=== PATIENT | female | born 1965 | race Caucasian/White ===

== ENCOUNTER 2024-12-08 14:54 | Emergency (ER) | payer OTHER, SELFPAY ==
--- NOTE | ~2024-12-08 | XR_ITS ---
EXAMINATION: XR chest 2V DATE: 12/08/2024 15:44 INDICATION: Productive cough TECHNIQUE: PA and lateral views of the chest were obtained. COMPARISON: Chest radiograph dated 11/25/10 FINDINGS: The lungs are hyperexpanded with flattening of the diaphragm and increased retrosternal clear space s uggestive but not diagnostic of COPD. No focal airspace opacities, pulmonary edema, pleural effusion or pneumothorax. The cardiomediastinal silhouette is normal. Moderate thoracic spondylosis with chron ic mild anterior wedging of a midthoracic vertebral body. IMPRESSION: 1. Hyperexpansion lungs suggestive but not diagnostic of COPD. No acute cardiopulmonary disease. Reviewed, dictated and finalized at location A. R DIAMETER GRINDER IMPRESSION: 1. Hyperexpansion lungs suggestive but not diagnostic of COPD. No acute cardiop ulmonary disease.
[2024-12-08 15:09] VITALS: BP 113/71; PULSE 97; RESP 16; TEMP 37.1; O2SAT 96
--- NOTE | 2024-12-08 15:18 | ED.NAVMDI ---
HPI - Nausea/Vomiting/Diarrhea General Chief complaint: Nausea/Vomiting/Diarrhea Stated complaint: cough,TREVIÑO,fever,diarrhea,bodyaches Time Seen by Provider: 12/08/24 15:20 Source: patient, RN notes reviewed and old records reviewed Mode of arrival: ambulatory Limitations: no limitations History of Present Illness HPI Narrative: Patient presents with complaints of flu-like symptoms that began 2 days ago. She has been taking [id number] medications for her symptoms with moderate relief. She does report cough and wheezing is the worst of her symptoms. She is not in any distress, including respiratory distress Related Data Home Medications ?Medication ?Instructions ?Recorded ?Confirmed ?Last Taken ?Type albuterol sulfate 90 mcg/actuation inhalation 12/08/24 Unknown History aerosol inhaler budesonide 160 mcg-glycopyr 9 inh inhalation 12/08/24 Unknown History mcg-formot 4.8 mcg/actuation HFA inhaler (Breztri Aerosphere) Allergies Allergy/AdvReac Type Severity Reaction Status Date / Time acetaminophen (From Vicodin) Allergy Intermediate RASH Verified 12/08/24 15:17 hydrocodone (From Vicodin) Allergy Intermediate RASH Verified 12/08/24 15:17 Review of Systems Review of Systems: All systems reviewed & are unremarkable except as noted in HPI and below Constitutional: Constitutional: Reports no additional constitutional complaints, Reports body ache(s), Reports daytime sleepiness, Reports fever(s), Reports headache(s) and Reports lethargy ENT: Reports system reviewed and no additional complaints, except as documented Cardiovascular: Cardiovascular: Reports no additional cardiovascular complaints Respiratory: Respiratory: Reports no additional respiratory complaints, Reports change in phlegm color, Reports chest congestion, Reports cough and Reports wheezing Gastrointestinal: Gastrointestinal: Reports no additional gastrointestinal complaints PMFSH Comments At the time of my signature, I reviewed and agree with the nursing past medical, surgical, social, and family history. There is no relevant family history pertinent to the patient complaint. Exam Const: General: cooperative, no acute distress, alert, awake and uncomfortable Orientation/consciousness: oriented to person, oriented to place and oriented to time HENMT: Head: normal to inspection Mouth: Yes moist mucous membranes Resp: Effort & Inspection: normal respiratory effort and able to speak in complete sentences Auscultation: clear to auscultation bilaterally, no crackles, no rales, no rhonchi, wheezes and diminished lung sounds bilateral in the lower lung bowser Cardio: Palpation: normal PMI Rate: regular rate Rhythm: regular rhythm Heart sounds: S1 normal heart sound present and S2 normal heart sound present Neuro: General: oriented to person, oriented to place and oriented to time Cranial nerves: Yes CN's II-XII intact bilaterally Psych: Appearance: grossly normal Thought process: Normal thought process present Insight: Good insight present (Psych) Judgement: Good judgement present (Psych) Course Course Level of Care: Express Care Visit Vital Signs Vital signs: Vital Signs Temperature 98.8 F 12/08/24 15:09 Pulse Rate 97 12/08/24 15:09 Respiratory Rate 16 12/08/24 15:09 Blood Pressure 113/71 12/08/24 15:09 Pulse Oximetry 96 12/08/24 15:09 Oxygen Delivery Room Air 12/08/24 15:09 Temperature 98.8 F 12/08/24 15:09 Pulse Rate 97 12/08/24 15:09 Respiratory Rate 16 12/08/24 15:09 Blood Pressure 113/71 12/08/24 15:09 Pulse Oximetry 96 12/08/24 15:09 Oxygen Delivery Room Air 12/08/24 15:09 Reviewed MDM - Nausea/Vomiting/Diarrhea MDM Narrative Medical decision making narrative: Reassuring chest x-ray. Physical exam significant for abnormal lung sounds. Given comorbid conditions and exam, will cover with azithromycin in addition to prednisone and albuterol. Discharge instructions reviewed with patient, as well as provided in writing per nursing staff. The instructions also include specific and strict return/GO TO THE ER as well as f/u information. All questions have been answered, and the patient deny any further questions with discharge and discharge plan. Some parts of this dictation were generated by voice recognition software and may contain typographical and/or grammatical inaccuracies. Differential Diagnosis Differential diagnosis: Likely other (COVID, influenza) Medical Records Attestation: I reviewed the patient's medical records. Lab Data Attestation: I reviewed the patient's lab results. Discharge Plan Discharge Clinical Impression: COVID-19 Patient Disposition: Home, Self-Care Condition: Stable Instructions: Antibiotic Form, How to Recover from COVID-19 at Home (ED) Additional Instructions: Take medications as prescribed. Follow-up with primary care provider. Emergency department for new or worsening symptoms Patient Language: Tanzanian Prescriptions: New azithromycin 250 mg tablet See Rx Instructions .ROUTE .COMPLEX Qty: 6 0RF Rx Instructions: For 250 mg dose pack: take 500 mg today (day 1), then 250 mg for 4 days (days 2-5) prednisone 50 mg tablet 50 mg PO DAILY Qty: 5 0RF albuterol sulfate [Ventolin HFA] 90 mcg/actuation HFA aerosol inhaler 2 puff inhalation QID PRN (Reason: shortness of breath or wheezing) Qty: 8.5 0RF No Action albuterol sulfate 90 mcg/actuation HFA aerosol inhaler INHALATION [facility] 160-9-4.8 mcg/actuation HFA aerosol inhaler INHALATION Follow-up/Referrals: Rupal,BENITO Caruso [Primary Care Provider] - 1 Week Stand Alone Forms: Work/School Release IP Time of Disposition: 16:03
[2024-12-08 15:33] LABS: EDCOVIDSCREEN Positive (Negative); EDINFLUASCREEN Negative (Negative); EDINFLUBSCREEN Negative (Negative)
== END 2024-12-08 16:05 | disposition home or self-care (01) ==
PROVIDERS: Emergency Provider Nurse Practitioner Family; PCP Nurse Practitioner
DX: U07.1 COVID-19 (principal); J44.9 Chronic obstructive pulmonary disease, unspecified; I25.2 Old myocardial infarction
CPT/HCPCS: 71046; 87426; 87804; 99203; G0463

== ENCOUNTER 2025-08-31 12:35 | Emergency (ER) | payer OTHER, SELFPAY ==
[2025-08-31 12:43] VITALS: BP 135/90; PULSE 102; RESP 20; TEMP 36.8; O2SAT 94
--- NOTE | 2025-08-31 12:44 | ED.DENTAL ---
HPI - Dental/Oral General Chief complaint: Dental/Oral Stated complaint: mouth pain Time Seen by Provider: 08/31/25 12:44 Source: patient Mode of arrival: ambulatory Limitations: no limitations History of Present Illness HPI Narrative: 59 yo F presents with c/o pain to mouth. Wearing her old dentures for the past week, newer dentures are being repaired. has caused cuts to gums but unable to remove them because she needs to have them in for work and to eat. Is picking up repairs dentures today. States she is swollen and concerned for infection. All systems reviewed and negative except as noted above. Related Data Home Medications ?Medication ?Instructions ?Recorded ?Confirmed ?Last Taken ?Type albuterol sulfate 90 mcg/actuation inhalation 12/08/24 Unknown History aerosol inhaler budesonide 160 mcg-glycopyr 9 inh inhalation 12/08/24 Unknown History mcg-formot 4.8 mcg/actuation HFA inhaler (Breztri Aerosphere) Allergies Allergy/AdvReac Type Severity Reaction Status Date / Time acetaminophen (From Vicodin) Allergy Intermediate RASH Verified 08/31/25 12:51 hydrocodone (From Vicodin) Allergy Intermediate RASH Verified 08/31/25 12:51 PMFSH Comments At time of signature, agree with nursing past medical, surgical, social and family history. There is no relevant family history pertinent to the presenting complaint. Exam Narrative: GENERAL: This is a well-nourished, well-developed patient, in no apparent distress. HEAD: normocephalic, atraumatic. EYES: PERRL. Sclera clear/white. Vision is grossly intact. EARS: External ears normal NOSE: External nose normal MOUTH: lacerations to both sides upper gums were gums meets buccal mucosa. no bleeding. swelling noted. no drainage. NECK: Neck supple, non-tender without lymphadenopathy, masses or thyromegaly. CARDIOVASCULAR: Regular rate and rhythm without murmurs, gallops, or rubs. RESPIRATORY: Clear to auscultation. Breath sounds equal bilaterally. No wheezes, rales, or rhonchi. SKIN: warm, Dry, intact with no suspicious lesions or rash, good texture and turgor. NEURO: awake, alert, and oriented to person, place and time. There were no obvious focal neurologic abnormalities. EXTREMITIES: No joint tenderness, effusion, or edema noted. Course Course Level of Care: Express Care Visit Vital Signs Vital signs: Vital Signs Temperature 36.8 C 08/31/25 12:43 Pulse Rate 102 H 08/31/25 12:43 Respiratory Rate 20 08/31/25 12:43 Blood Pressure 135/90 08/31/25 12:43 Pulse Oximetry 94 08/31/25 12:43 Oxygen Delivery Room Air 08/31/25 12:43 Temperature 36.8 C 08/31/25 12:43 Pulse Rate 102 H 08/31/25 12:43 Respiratory Rate 20 08/31/25 12:43 Blood Pressure 135/90 08/31/25 12:43 Pulse Oximetry 94 08/31/25 12:43 Oxygen Delivery Room Air 08/31/25 12:43 reviewed MDM - Dental/Oral MDM Narrative Medical decision making narrative: At time of signature, agree with nursing past medical, surgical, social and family history. There is no relevant family history pertinent to the presenting complaint. Discharge Plan Discharge Clinical Impression: Bacterial oral infection, Ill-fitting dentures Patient Disposition: Home Condition: Stable Instructions: Antibiotic Form Additional Instructions: Take antibiotic as prescribed until gone. Remove dentures to allow wounds to heal. apply lidocaine sparingly to affected area to treat pain. Follow-up with your dentist if not improving. Patient Language: Cameroonian Prescriptions: New amoxicillin-pot clavulanate 875-125 mg tablet 1 tablet PO Q12H 10 Days Qty: 20 0RF lidocaine HCl [Lidocaine Viscous] 2 % solution 1 applic mucous membrane Q4-6H PRN (Reason: pain) Qty: 100 0RF Rx Instructions: apply sparingly to painful tooth/gums No Action albuterol sulfate 90 mcg/actuation HFA aerosol inhaler INHALATION Breztri Aerosphere 160-9-4.8 mcg/actuation HFA aerosol inhaler INHALATION azithromycin 250 mg tablet See Rx Instructions .ROUTE .COMPLEX Qty: 6 0RF Rx Instructions: For 250 mg dose pack: take 500 mg today (day 1), then 250 mg for 4 days (days 2-5) prednisone 50 mg tablet 50 mg PO DAILY Qty: 5 0RF albuterol sulfate [Ventolin HFA] 90 mcg/actuation HFA aerosol inhaler 2 puff inhalation QID PRN (Reason: shortness of breath or wheezing) Qty: 8.5 0RF Follow-up/Referrals: Rupal,BENITO Caruso [Primary Care Provider] Stand Alone Forms: Work/School Release IP Time of Disposition: 12:50
== END 2025-08-31 12:53 | disposition home or self-care (01) ==
PROVIDERS: Emergency Provider Nurse Practitioner Family; PCP Nurse Practitioner
DX: S01.512A Laceration without foreign body of oral cavity, initial encounter (principal); B96.89 Other specified bacterial agents as the cause of diseases classified elsewhere; X58.XXXA Exposure to other specified factors, initial encounter; Z46.3 Encounter for fitting and adjustment of dental prosthetic device; J44.9 Chronic obstructive pulmonary disease, unspecified; I25.2 Old myocardial infarction
CPT/HCPCS: 99213; G0463

== ENCOUNTER 2025-09-30 17:00 | Emergency (ER) | payer OTHER, SELFPAY ==
--- NOTE | ~2025-09-30 | XR_ITS ---
EXAMINATION: XR chest 2V, 09/30/2025 17:11 [employer] HISTORY: cough, 6 days, smoker hx COPD, emphysema, pneumonia COMPARISON: No comparisons available. Technique: 2 views obtained. Findings: COPD changes otherwise the lungs are clear No pneumothorax. Heart is normal size. Mediastinal and hilar contours are within normal limits. Bony thorax no acute abnormality. Impression: No acute cardiopulmonary abnormality. Reviewed, dictated and finalized at location P. [employer]SEM[employer] Impression: No acute cardiopulmonary abnormality.
--- NOTE | 2025-09-30 17:02 | ED.GENADULT ---
HPI - General Adult General Chief complaint: Upper Respiratory Infection Stated complaint: Cough/Bodyaches Time Seen by Provider: 09/30/25 17:02 Source: patient Mode of arrival: ambulatory Limitations: no limitations History of Present Illness HPI narrative: Pt is a 59 y/o female presenting with c/o cough. Cough began last . Additional sx reported include bodyaches, congestion. 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 No known direct exposure to COVID,FLU,STREP,PNA. NO additional complaints. Related Data Home Medications ?Medication ?Instructions ?Recorded ?Confirmed ?Last Taken ?Type albuterol 90 mcg-budesonide 80 inh inhalation 09/30/25 Unknown History mcg/actuation HFA aerosol inhaler (Airsupra) Allergies Allergy/AdvReac Type Severity Reaction Status Date / Time acetaminophen (From Vicodin) Allergy Intermediate RASH Verified 09/30/25 17:15 hydrocodone (From Vicodin) Allergy Intermediate RASH Verified 09/30/25 17:15 Review of Systems Review of Systems: CONSTITUTIONAL: reports body aches, denies fever, chills, or sweats. EYES: Denies visual changes, redness, or discharge. ENT:reports congestion, Denies rhinorrhea, sore throat, or otalgia. CARDIOVASCULAR: Denies chest pain, palpitations, or edema. RESPIRATORY: reports cough denies dyspnea. GASTROINTESTINAL: Denies abdominal pain, nausea, vomiting, or diarrhea. GENITOURINARY: Denies dysuria or hematuria. SKIN: Denies rash, itching, or wounds. MUSCULOSKELETAL: Denies back pain, joint pain, or myalgia. NEUROLOGIC: Denies headache, numbness, tingling, or weakness. PSYCH: Denies depression or anxiety. All systems reviewed & are unremarkable except as noted in HPI and below Exam Narrative: GENERAL: Well-appearing, well-nourished, and in no acute distress. HEAD: Normocephalic, atraumatic. EYES: EOMI. No redness or drainage. Conjunctivae normal. ENT: Mucous membranes pink and moist. Nares clear. No rhinorrhea. TMs normal bilaterally. Throat normal. Uvula midline. NECK: Normal AROM. Supple. No lymphadenopathy. CHEST: No respiratory distress. Coarse lung sounds with faint wheezing throughout. Speaking in complete sentences without difficulty. No accessory muscle use. + raspy cough HEART: Regular rate and rhythm. No murmur appreciated. Normal peripheral pulses. ABDOMEN: Soft, nontender, nondistended, normal active bowel sounds. MUSCULOSKELETAL: No bony tenderness. EXTREMITIES: Normal range of motion. No edema. SKIN: Warm, dry, no rash. Capillary refill normal. Normal skin turgor. NEURO: No focal deficits. Alert and oriented x3. Gait steady. PSYCH: Normal affect. No signs of depression or anxiety. Course Course Emergency Course: denies needing refill on inhalers. No PNA or acute abnormality on CXR. Afebrile, nontoxic. Will d/c with prednisone, strict go to ER precautions. Discussed elevated blood pressure readings with patient and advised daily BP monitoring and f/u with PCP if persisting. Level of Care: Express Care Visit Vital Signs Vital signs: Vital Signs Temperature 98.7 F 09/30/25 17:08 Pulse Rate 97 09/30/25 17:08 Respiratory Rate 22 H 09/30/25 17:08 Blood Pressure 156/88 H 09/30/25 17:08 Pulse Oximetry 96 09/30/25 17:08 Oxygen Delivery Room Air 09/30/25 17:08 Temperature 98.7 F 09/30/25 17:08 Pulse Rate 97 09/30/25 17:08 Respiratory Rate 22 H 09/30/25 17:08 Blood Pressure 156/88 H 09/30/25 17:08 Pulse Oximetry 96 09/30/25 17:08 Oxygen Delivery Room Air 09/30/25 17:08 [facility] Differential Diagnosis Differential Diagnosis: COVID, FLU, PNA, COPD exacerbation, unspecified viral URI Medical Records I have reviewed the following patient records and this information was taken into consideration when formulating the assessment and plan.: previous clinic visits Lab Data [facility] Lab Attestation statement: I personally reviewed the patient's lab results. Labs: Lab Results 09/30/25 09/30/25 Range/Units 17:04 17:29 POC Influenza A Ag Negative Negative (Negative) POC Influenza B Ag Negative Negative (Negative) POC SARS CoV-2 Ag Negative Negative (Negative) Imaging Data Radiologist's impression: ITS Impressions Chest X-Ray 09/30/25 17:21 Impression: No acute cardiopulmonary abnormality. Discharge Plan Discharge Clinical Impression: Viral infection, Cough, Acute exacerbation of chronic obstructive pulmonary disease, Elevated blood pressure reading in office without diagnosis of hypertension Patient Disposition: Home Condition: Stable Instructions: Antibiotic Form, Upper Respiratory Infection (ED), COPD (Chronic Obstructive Pulmonary Disease) (DC) Additional Instructions: Go straight to ER should your symptoms become worse or should any new symptoms develop Patient Language: Yemeni Prescriptions: New prednisone 20 mg tablet 40 mg PO DAILY Qty: 10 0RF No Action Airsupra 90-80 mcg/actuation HFA aerosol inhaler INHALATION Follow-up/Referrals: Rupal,BENITO Caruso [Primary Care Provider] - 10/01/25 Time of Disposition: 17:33
[2025-09-30 17:08] VITALS: BP 156/88; PULSE 97; RESP 22; TEMP 37.1; O2SAT 96
[2025-09-30 17:31] LABS: EDCOVIDSCREEN Negative (Negative); EDINFLUASCREEN Negative (Negative); EDINFLUBSCREEN Negative (Negative)
[2025-09-30 17:31] LABS: EDCOVIDSCREEN Negative (Negative); EDINFLUASCREEN Negative (Negative); EDINFLUBSCREEN Negative (Negative)
== END 2025-09-30 17:58 | disposition home or self-care (01) ==
PROVIDERS: Emergency Provider Registered Nurse; PCP Nurse Practitioner
DX: B34.9 Viral infection, unspecified (principal); J44.1 Chronic obstructive pulmonary disease with (acute) exacerbation; R03.0 Elevated blood-pressure reading, without diagnosis of hypertension; Z20.822 Contact with and (suspected) exposure to COVID-19
CPT/HCPCS: 71046; 87426; 87804; 99213; G0463